=== PATIENT | female | born 1995 | race Caucasian/White ===

== ENCOUNTER 2017-12-31 11:37 | Emergency (ER) | payer BC ==
[2017-12-31] MEDS ORDERED: RINGERS SOLUTION,LACTATED 1,000 ML IV ONE (12:52)
[2017-12-31 13:18] LABS: ABSOLUTE LYMPHOCYTES (AUTO) 1.1 10^3/uL (0.5-4.7); ABSOLUTE MONOCYTES (AUTO) 0.5 10^3/uL (0.1-1.4); ABSOLUTE NEUT (AUTO) 8.2 10^3/uL (1.7-8.2); BASOPHILS % (AUTO) 0.2 % (0-2); EOSINOPHILS % (AUTO) 0.2 % (0-6); HEMATOCRIT 35.6 % (36.0-47.0); HEMOGLOBIN 12.4 g/dL (12.0-15.5); LYMPHOCYTES % (AUTO) 10.8 % (13-45); MEAN CORPUSCULAR HEMOGLOBIN 29.7 pg (27.0-33.4); MEAN CORPUSCULAR HGB CONC 34.9 g/dL (32.0-36.0); MEAN CORPUSCULAR VOLUME 85 fl (80-97); MONOCYTES % (AUTO) 5.3 % (3-13); PLATELET COUNT 198 10^3/uL (150-450); RED BLOOD COUNT 4.18 10^6/uL (3.72-5.28); RED CELL DISTRIBUTION WIDTH 12.2 % (11.5-14.0); SEGMENTED NEUTROPHILS % (AUTO) 83.5 % (42-78); TOTAL CELLS COUNTED % (AUTO) 100 %; WHITE BLOOD COUNT 9.8 10^3/uL (4.0-10.5)
[2017-12-31 13:36] LABS: APPEARANCE,URINE CLOUDY; BILIRUBIN,URINE NEGATIVE (NEGATIVE); GLUCOSE, URINE NEGATIVE (NEGATIVE); KETONES,URINE NEGATIVE (NEGATIVE); LEUKOCYTE ESTERASE,URINE NEGATIVE (NEGATIVE); NITRITE,URINE NEGATIVE (NEGATIVE); PROTEIN,URINE 100 mg/dL (NEGATIVE); URINE SPECIFIC GRAVITY 1.014; UROBILINOGEN,URINE NEGATIVE mg/dL (<2.0)
[2017-12-31 13:37] LABS: COLOR,URINE AMBER
[2017-12-31 13:38] LABS: ALANINE AMINOTRANSFERASE 18 U/L (9-52); ALBUMIN 4.1 g/dL (3.5-5.0); ALKALINE PHOSPHATASE 51 U/L (38-126); ANION GAP 11 (5-19); ASPARTATE AMINO TRANSFERASE 15 U/L (14-36); BILIRUBIN,DIRECT 0.1 mg/dL (0.0-0.4); BILIRUBIN,TOTAL 0.2 mg/dL (0.2-1.3); BLOOD UREA NITROGEN 9 mg/dL (7-20); CALCIUM 9.3 mg/dL (8.4-10.2); CARBON DIOXIDE 27 mmol/L (22-30); CHLORIDE 101 mmol/L (98-107); GLUCOSE 80 mg/dL (75-110); POTASSIUM 3.6 mmol/L (3.6-5.0); SODIUM 139.2 mmol/L (137-145); TOTAL PROTEIN 6.9 g/dL (6.3-8.2)
--- NOTE | 2017-12-31 14:15 | ER Document Report ---
ED Dizziness/Weakness - General Chief Complaint: Syncope Stated Complaint: FACIAL LACERATION Time Seen by Provider: 12/31/17 12:51 Information source: Patient Notes: Chief complaint: Laceration chin History of complain:( obtained from----patient) 22 years old female who is first trimester , did not eat anything the whole day, while dizzy and passed out and hit the table on her chin and sustained a laceration. Passing out is only for a few seconds, spontaneously came around to full consciousness. Currently has no headache no blurring of vision denies any neck pain neck stiffness. Denies any chest pain shortness of breath. Denies any abdominal pain. But felt urine being darker. Onset: As above Duration: Just prior to arrival Severity: Moderate Quality: Not applicable Context: As described above Exacerbating factor and relieving factors: None REVIEW OF SYSTEMS: CONSTITUTIONAL : Denies fever, chills, or sweats. Denies recent illness. EENT: Denies eye, ear, throat, or mouth pain or symptoms. Denies nasal or sinus congestion or discharge. Denies throat, tongue, or mouth swelling or difficulty swallowing. CARDIOVASCULAR: Denies chest pain. Denies palpitations or racing or irregular heart beat. Denies ankle edema. RESPIRATORY: Denies cough, cold, or chest congestion. Denies shortness of breath, difficulty breathing, or wheezing. GASTROINTESTINAL: Denies distention. Denies nausea, vomiting, or diarrhea. Denies blood in vomitus, stools, or per rectum. Denies black, tarry stools. Denies constipation. GENITOURINARY: Denies difficulty urinating, painful urination, burning, frequency, blood in urine, or discharge. FEMALE GENITOURINARY: Denies vaginal bleeding, heavy or abnormal periods, irregular periods. Denies vaginal discharge or odor. MUSCULOSKELETAL: Denies back or neck pain or stiffness. Denies joint pain or swelling. SKIN: Denies rash, lesions or sores. HEMATOLOGIC : Denies easy bruising or bleeding. LYMPHATIC: Denies swollen, enlarged glands. NEUROLOGICAL: Denies confusion or altered mental status. Denies passing out or loss of consciousness. Denies dizziness or lightheadedness. Denies headache. Denies weakness or paralysis or loss of use of either side. Denies problems with gait or speech. Denies sensory loss, numbness, or tingling. Denies seizures. PSYCHIATRIC: Denies anxiety or stress. Denies depression, suicidal ideation, or homicidal ideation. ALL OTHER SYSTEMS REVIEWED AND NEGATIVE. PHYSICAL EXAMINATION: GENERAL: Well-appearing, well-nourished and in no acute distress. HEAD: Atraumatic, normocephalic. EYES: Pupils equal round and reactive to light, extraocular movements intact, conjunctiva are normal. ENT: Nares patent, oropharynx clear without exudates. Moist mucous membranes. 1.5 cm linear laceration noted over the lower part of the chin NECK: Normal range of motion, supple without lymphadenopathy LUNGS: Breath sounds clear to auscultation bilaterally and equal. No wheezes rales or rhonchi. HEART: Regular rate and rhythm without murmurs ABDOMEN: Soft, nontender, nondistended abdomen. No guarding, no rebound. No masses appreciated. Examination of genitals-deferred Musculoskeletal: Normal range of motion, no pitting or edema. No cyanosis. NEUROLOGICAL: Cranial nerves grossly intact. Normal speech, normal gait. Normal sensory, motor exams PSYCH: Normal mood, normal affect. SKIN: Warm, Dry, normal turgor, no rashes or lesions noted. Dictation was performed using [employer] voice recognition software TRAVEL OUTSIDE OF THE [place] IN LAST 30 DAYS: No - HPI Notes: 1 dictated - Related Data Allergies/Adverse Reactions: No Known Allergies Allergy (Unverified 12/31/17 11:45) Past Medical History - Social History Smoking Status: Never Smoker Chew tobacco use (# tins/day): No Frequency of alcohol use: None Drug Abuse: None Lives with: Family Family History: Reviewed & Not Pertinent Patient has suicidal ideation: No Patient has homicidal ideation: No Renal/ Medical History: Denies: Hx Peritoneal Dialysis Review of Systems - Review of Systems Notes: dictated Physical Exam - Vital signs Vitals: Temp Pulse Resp BP Pulse Ox 98.0 F 73 16 127/66 H 100 12/31/17 11:54 12/31/17 11:54 12/31/17 11:54 12/31/17 11:54 12/31/17 11:54 - Notes Notes: dictated Course - Re-evaluation Re-evalutation: 12/31/17 16:10 Patient is pain-free - Vital Signs Vital signs: Temp Pulse Resp BP Pulse Ox 98.0 F 73 16 127/66 H 100 12/31/17 11:54 12/31/17 11:54 12/31/17 11:54 12/31/17 11:54 12/31/17 11:54 - Laboratory Result Diagrams: 12/31/17 13:00 12/31/17 13:00 Laboratory results interpreted by me: 12/31/17 12/31/17 12/31/17 12:53 13:00 13:00 Hct 35.6 L Seg Neutrophils % 83.5 H Lymphocytes % 10.8 L Beta HCG, Quant 15849.00 H Urine Protein 100 H Urine Blood LARGE H - Diagnostic Test Radiology reviewed: Reports reviewed - Ultrasound of the abdomen reported by radiologist as no normal kidneys did not visualize any stone Procedures - Laceration/Wound Repair Face Time completed: 13:30 Wound length (cm): 1.5 Wound's Depth, Shape: Superficial, Linear Wound Repaired With: Dermabond - Laceration was repaired with Dermabond Discharge - Discharge Clinical Impression: Intrauterine , Syncope, near Hematuria Qualifiers: Hematuria type: asymptomatic microscopic Qualified Code(s): R31.21 - Asymptomatic microscopic hematuria Laceration of chin Qualifiers: Encounter type: initial encounter Qualified Code(s): S01.81XA - Laceration without foreign body of other part of head, initial encounter Condition: Fair Disposition: HOME, SELF-CARE Instructions: Laceration Care ([facility]), Urinary Tract Infection ([facility]), Hematuria ( [facility]) Prescriptions: Nitrofurantoin Macrocrystal [Macrodantin] 100 mg PO BID #14 capsule Referrals: LOCALMD,NO [NO LOCAL MD] - Follow up as needed
--- NOTE | 2017-12-31 15:32 | RADIOLOGY REPORT (SQ) ---
EXAM DESCRIPTION: U/S RETROPERITON (RENAL/AORTA) COMPLETED DATE/TIME: 12/31/2017 3:09 pm REASON FOR STUDY: Hematuria/rule out renal stone. She is with hematuria and left flank kojo n COMPARISON: None. TECHNIQUE: Dynamic and static grayscale images acquired of the kidneys and bladder and recorded on P ACS. Additional selected color Doppler and spectral images recorded. LIMITATIONS: None. FINDINGS: RIGHT KIDNEY: Normal size. Normal echogenicity. No solid or suspicious masses. No hydronep hrosis. No calcifications. LEFT KIDNEY: Normal size. Normal echogenicity. No solid or suspicious masses. 1.7 cm cyst left lowe r pole kidney. No hydronephrosis. No calcifications. BLADDER: No masses. Right ureteral jet into the bladder was identified. OTHER FINDINGS: No other significant finding. IMPRESSION: No hydronephrosis. TECHNICAL DOCUMENTATION: JOB ID: [id number] [employer]- All Rights Reserved Reading location - IP/workstation name: [email or web address]
[2017-12-31 16:29] VITALS: BP 123/52
== END 2017-12-31 16:30 | disposition home or self-care (01) ==
LOC: ER 11:37
DX: O9A.211 Injury, poisoning and certain other consequences of external causes complicating pregnancy, first trimester (principal); S01.81XA Laceration without foreign body of other part of head, initial encounter; W22.03XA Walked into furniture, initial encounter; O26.891 Other specified pregnancy related conditions, first trimester; R55 Syncope and collapse; R31.21 Asymptomatic microscopic hematuria; Z3A.00 Weeks of gestation of pregnancy not specified
CPT/HCPCS: 99284; 96360; 36415; 84702; 85025; 80053; 81001; 76770; 12011; J7120

== ENCOUNTER 2018-08-30 10:36 | Outpatient (CLI) | payer MEDICAID ==
--- NOTE | 2018-08-30 11:36 | Non Stress Test Report ---
Non Stress Test Datetime Report Generated by CPN: 08/30/2018 11:36 DEMOGRAPHIC EGA NST: 40.1 INDICATION Indication for Study: Other Indication for Study (NST) Other: Repeat sent from office VITAL SIGNS Temperature - NST: 98.3 RESP - NST: 16 MONITORING Monitor Explained: Monitor Explained; Test Explained; Patient Verbalized Understanding Time on Monitor: 08/30/2018 10:44 Time off Monitor: 08/30/2018 11:22 NST Duration: 38 NST INTERVENTIONS NST Interventions: PO Hydration; Reposition Patient Physician Notified NST: Adrianne Patrick CNM BABY A: [id number] Movement : Present Contraction Frequency : irregular FHR Baseline : 115 Accelerations : 15X15 Decelerations : None Variability : Moderate 6-25bpm NST Review: Meets Criteria for Reactive NST NST Review and Verified By : Homero Hicks RN NST Results: Reactive NST REPORT Report Trigger: Send Report
== END 2018-08-30 11:27 | disposition home or self-care (01) ==
LOC: LC 10:36
PROVIDERS: ATTEND Obstetrics & Gynecology
DX: O36.8330 Maternal care for abnormalities of the fetal heart rate or rhythm, third trimester, not applicable or unspecified (principal); Z3A.40 40 weeks gestation of pregnancy
CPT/HCPCS: 59025

== ENCOUNTER 2018-09-04 18:29 | Inpatient (IN) | payer BC, MEDICAID ==
[2018-09-04] MEDS ORDERED: OXYTOCIN/NORMAL SALINE 20 UNIT/1,000 ML RTUINJ IV PRN (18:40)
[2018-09-04] MEDS ORDERED: DINOPROSTONE 10 MG VAGINAL INSERT.SR PV PRN (18:40)
[2018-09-04] MEDS ORDERED: RINGERS SOLUTION,LACTATED 1,000 ML IV PRN (18:40)
[2018-09-04] MEDS ORDERED: RINGERS SOLUTION,LACTATED 300 ML IV ONE (18:40)
[2018-09-04 19:10] LABS: ABSOLUTE BASOPHILS # (AUTO) 0.1 10^3/uL (0.0-0.2); ABSOLUTE EOSINOPHILS # (AUTO) 0.1 10^3/uL (0.0-0.6); ABSOLUTE LYMPHOCYTES (AUTO) 1.9 10^3/uL (0.5-4.7); ABSOLUTE MONOCYTES (AUTO) 0.8 10^3/uL (0.1-1.4); ABSOLUTE NEUT (AUTO) 9.1 10^3/uL (1.7-8.2); BASOPHILS % (AUTO) 0.5 % (0-2); EOSINOPHILS % (AUTO) 0.5 % (0-6); HEMATOCRIT 34.9 % (36.0-47.0); HEMOGLOBIN 11.8 g/dL (12.0-15.5); LYMPHOCYTES % (AUTO) 16.2 % (13-45); MEAN CORPUSCULAR HEMOGLOBIN 27.5 pg (27.0-33.4); MEAN CORPUSCULAR HGB CONC 33.7 g/dL (32.0-36.0); MEAN CORPUSCULAR VOLUME 82 fl (80-97); MONOCYTES % (AUTO) 6.3 % (3-13); PLATELET COUNT 202 10^3/uL (150-450); RED BLOOD COUNT 4.29 10^6/uL (3.72-5.28); RED CELL DISTRIBUTION WIDTH 13.1 % (11.5-14.0); SEGMENTED NEUTROPHILS % (AUTO) 76.5 % (42-78); TOTAL CELLS COUNTED % (AUTO) 100 %
[2018-09-04 19:27] LABS: APPEARANCE,URINE CLOUDY; BILIRUBIN,URINE NEGATIVE (NEGATIVE); GLUCOSE, URINE NEGATIVE (NEGATIVE); KETONES,URINE NEGATIVE (NEGATIVE); LEUKOCYTE ESTERASE,URINE MODERATE (NEGATIVE); NITRITE,URINE NEGATIVE (NEGATIVE); PROTEIN,URINE 100 mg/dL (NEGATIVE); URINE SPECIFIC GRAVITY 1.017; UROBILINOGEN,URINE NEGATIVE mg/dL (<2.0)
[2018-09-04] MEDS: RINGERS SOLUTION,LACTATED 1,000 ML IV PRN (19:33)
[2018-09-04 19:36] LABS: COLOR,URINE DARK YELLOW
[2018-09-04] MEDS ORDERED: DINOPROSTONE 10 MG VAGINAL INSERT.SR ONE (19:52)
[2018-09-04 19:59] LABS: URINE AMPHETAMINES SCREEN NEGATIVE; URINE BARBITURATES SCREEN NEGATIVE; URINE BENZODIAZEPINES SCREEN NEGATIVE; URINE COCAINE SCREEN NEGATIVE; URINE MARIJUANA (THC) SCREEN NEGATIVE; URINE METHADONE SCREEN NEGATIVE; URINE PHENCYCLIDINE SCREEN NEGATIVE
[2018-09-04] MEDS ORDERED: NALBUPHINE HCL INJ 10 MG/1 ML AMPULE ONE (22:13)
[2018-09-04] MEDS ORDERED: PROMETHAZINE HCL INJ 25 MG/1 ML VIAL ONE (22:13)
[2018-09-04] MEDS ORDERED: PROMETHAZINE HCL INJ 25 MG/1 ML VIAL IV ONE (22:30)
[2018-09-04] MEDS ORDERED: NALBUPHINE HCL INJ 10 MG/1 ML AMPULE INJ ONE (22:30)
--- NOTE | 2018-09-05 00:14 | Admission Physical ---
Datetime Report Generated by CPN: 09/05/2018 00:14 CURRENT ADMISSION Chief Complaint: Uterine Contractions; Suspected Ruptured Membranes Indication for Induction: Post Dates Admit Impression : Term, Intrauterine Admit Plan: Initiate Labor Protocol ALLERGIES Medication Allergies: No Medication Allergies: No Known Allergies (09/04/2018) Latex: Latex Allergies OBSTETRICAL HISTORY EDC: 08/29/2018 00:00 : 1 Para: 0 Term: 0 : 0 SAB: 0 IAB: 0 Ectopic: 0 Livin Cesareans: 0 VBACs: 0 Multiple Births: 0 Gestational Diabetes: No Rh Sensitization: No Incompetent Cervix: No SHEYLA: No Infertility: No ART Treatment: No Uterine Anomaly: No IUGR: No Hx Previous C/S: No Macrosomia: No Hx Loss/Stillborn: No PIH: No Hx : No Placenta Previa/Abruption: No Depression/PP Depression: No PTL/PROM: No Post Hemorrhage: No Current Procedures: Ultrasound; NST Obstetrical History Comments: G1- current denies complications SEE RECORDS Alcohol: No Marijuana : No Cocaine: No Other Illicit Drugs: No Cigarettes: Never Smoker. [id number] MEDICAL HISTORY Diabetes: No Blood Transfusion: No Pulmonary Disease (Asthma, TB): No Breast Disease: No Hypertension: No Assistant Program Director Surgery: No Heart Disease: No Hosp/Surgery: Yes Autoimmune Disorder: No Anesthetic Complications: No Kidney Disease: No Abnormal Pap Smear: Yes Neuro/Epilepsy: No Psychiatric Disorders: No Other Medical Diseases: No Hepatitis/Liver Disease: No Significant Family History: No Varicosities/Phlebitis: No Trauma/Violence : No Thyroid Dysfunction: No Medical History Comments: 05/2010- ACL Right Knee repair abnormal pap x1 repeat was wnl INFECTIOUS HISTORY Gonorrhea: No Genital Herpes: No Chlamydia: No Tuberculosis: No Syphilis: No Hepatitis: No HIV/AIDS Exposure: No Rash or Viral Illness: No HPV: Yes Infectious History Comments: h/o HPV PHYSICAL EXAM General: Normal HEENT: Normal Neurologic: Normal Thyroid: Normal Heart: Normal Lungs: Normal Breast: Deferred Back: Normal Abdomen: Normal Genitourinary Exam: Normal Extremities: Normal DTRs: Normal Pelvic Type: Adequate FETUS A EGA: 41.0 PLANS FOR LABOR AND DELIVERY Labor and Delivery: None Pain Management: Natural; Medications; Epidural Feeding Preference: Formula Benefit of Breast Feed Discussed: Yes Circumcision: Yes INFORMED CONSENT Signature: with User ID: [email or web address]
[2018-09-05] MEDS ORDERED: OXYTOCIN 10 UNIT/ML VIAL ONE (00:28)
[2018-09-05] MEDS ORDERED: EPHEDRINE SULFATE INJ 50 MG/1 ML AMPULE ONE (00:28)
[2018-09-05] MEDS ORDERED: MISOPROSTOL 0.2 MG TABLET ONE (00:28)
[2018-09-05] MEDS ORDERED: LIDOCAINE 1% INJ-PF (10 MG/ML) 30 ML SDV ONE (00:29)
[2018-09-05] MEDS ORDERED: BUPIVACAINE HCL 0.25 % INJ/PF (2.5 MG/1 ML) 30 ML VIAL ONE (00:29)
[2018-09-05] MEDS ORDERED: FENTANYL/BUPIVACAINE/NS/PF 300 MCG/150 ML RTUINJ EPI ONE (00:29)
[2018-09-05] MEDS ORDERED: OXYTOCIN/NORMAL SALINE 20 UNIT/1,000 ML RTUINJ ONE (00:29)
[2018-09-05] MEDS: RINGERS SOLUTION,LACTATED 1,000 ML IV PRN (01:32)
[2018-09-05] MEDS ORDERED: OXYTOCIN/NORMAL SALINE 20 UNIT/1,000 ML RTUINJ IV PRN ×2 (04:00→10:07)
[2018-09-05] MEDS ORDERED: PENICILLIN G-K 5 MILLION UNIT VIAL IV ONE (07:25)
[2018-09-05] MEDS ORDERED: PENICILLIN G-K 5 MILLION UNIT VIAL ONE (07:29)
[2018-09-05] MEDS ORDERED: PROMETHAZINE HCL INJ 25 MG/1 ML VIAL IV PRN (10:07)
[2018-09-05] MEDS ORDERED: ZOLPIDEM TARTRATE 5 MG TABLET PO PRN (10:07)
[2018-09-05] MEDS ORDERED: MEASLES,MUMPS&RUBELLA VACC/PF 0.5 ML VIAL SUBCUT PRN (10:07)
[2018-09-05] MEDS ORDERED: GLYCERIN/WITCH HAZEL LEAF 1 EACH MED..WIPE TP PRN (10:07)
[2018-09-05] MEDS ORDERED: MAGNESIUM HYDROXIDE SUSP 30 ML UDCUP PO PRN (10:07)
[2018-09-05] MEDS ORDERED: DIPH/PERTUSS(ACELL)/TETANUS VAC/PF 0.5 ML SYR (>=10YO) IM PRN (10:07)
[2018-09-05] MEDS ORDERED: BENZOCAINE/MENTHOL AEROSOL SPRAY 56 ML TOP PRN (10:07)
[2018-09-05] MEDS ORDERED: PROMETHAZINE HCL 25 MG SUPP.RECT PR PRN (10:07)
[2018-09-05] MEDS ORDERED: DIPHENHYDRAMINE HCL 25 MG CAPSULE PO PRN (10:07)
[2018-09-05] MEDS ORDERED: PROMETHAZINE HCL 25 MG TABLET PO PRN (10:07)
[2018-09-05] MEDS ORDERED: DIBUCAINE 1% OINTMENT 56 GM TP PRN (10:07)
[2018-09-05] MEDS ORDERED: NA PHOS,M-B/NA PHOS,DI-BA (ADULT) 133 ML ENEMA PR PRN (10:07)
[2018-09-05] MEDS ORDERED: PSEUDOEPHEDRINE HCL 30 MG TABLET PO PRN (10:07)
[2018-09-05] MEDS ORDERED: IBUPROFEN 800 MG TABLET ONE (10:51)
[2018-09-05] MEDS: IBUPROFEN 800 MG TABLET PO SCH ×3 (10:53→22:48)
[2018-09-05] MEDS: FERROUS SULFATE 325 MG TABLET PO SCH (17:39)
[2018-09-05] MEDS: DOCUSATE SODIUM 100 MG CAPSULE PO SCH (17:39)
[2018-09-05] MEDS: ACETAMINOPHEN 325 MG TABLET PO PRN (17:45)
[2018-09-05] MEDS: FAMOTIDINE 20 MG TABLET PO SCH (22:46)
[2018-09-06] MEDS: IBUPROFEN 800 MG TABLET PO SCH ×3 (05:40→21:31)
[2018-09-06 06:51] LABS: HEMATOCRIT 26.5 % (36.0-47.0); MEAN CORPUSCULAR HGB CONC 34.2 g/dL (32.0-36.0); MEAN CORPUSCULAR VOLUME 82 fl (80-97); PLATELET COUNT 159 10^3/uL (150-450); RED BLOOD COUNT 3.23 10^6/uL (3.72-5.28); RED CELL DISTRIBUTION WIDTH 13.2 % (11.5-14.0); WHITE BLOOD COUNT 14.3 10^3/uL (4.0-10.5)
--- NOTE | 2018-09-06 09:30 | PDOC PROGRESS REPORT ---
Subjective-OB Progress Note for:: 09/06/18 Subjective: Pt doing well, no concerns. She reports light bleeding, reg diet and voiding without difficulty. Physical Exam (OB) Vital Signs: Temp Pulse Resp BP Pulse Ox 98.0 F 73 16 116/70 99 09/06/18 07:59 09/06/18 07:59 09/06/18 07:59 09/06/18 07:59 09/06/18 07:59 Intake & Output 09/05/18 09/06/18 09/07/18 06:59 06:59 06:59 Intake Total 748 1000 Balance 748 1000 Weight 82.554 kg - Lochia Lochia Amount: Small 10-25 ml Lochia Color: Rubra/Red - Abdomen Description: Soft Hernia Present: No Fundal Description: Firm, Midline Fundal Height: u/u - u/2 Objective-Diagnostic Laboratory: 09/06/18 06:18 09/06/18 06:18 WBC 14.3 H RBC 3.23 L Hgb 9.0 L D Hct 26.5 L MCV 82 MCH 28.0 MCHC 34.2 RDW 13.2 Plt Count 159 Assessment and Plan(PN) - Assessment and Plan (1) Delivery normal Is this a current diagnosis for this admission?: Yes (2) Prolonged rupture of membranes, greater than 24 hours, delivered Is this a current diagnosis for this admission?: Yes - Time Spent with Patient Time with patient: Less than 15 minutes Medications reviewed and adjusted accordingly: Yes - Disposition Anticipated Discharge: Home Within: within 24 hours
[2018-09-06] MEDS: FERROUS SULFATE 325 MG TABLET PO SCH ×2 (09:46→17:35)
[2018-09-06] MEDS: DOCUSATE SODIUM 100 MG CAPSULE PO SCH ×2 (09:46→17:35)
[2018-09-06] MEDS: PRENATAL VITAMIN W DHA CAPSULE PO SCH (09:47)
[2018-09-06] MEDS: FAMOTIDINE 20 MG TABLET PO SCH ×2 (09:47→21:31)
[2018-09-06] MEDS: SENNOSIDES/DOCUSATE 8.6-50 MG 1 EACH TABLET PO SCH (09:47)
[2018-09-06] MEDS: ACETAMINOPHEN 325 MG TABLET PO PRN (17:37)
[2018-09-06] MEDS ORDERED: ACETAMINOPHEN WITH CODEINE #3 TABLET PO PRN (19:31)
[2018-09-06] MEDS: ACETAMINOPHEN WITH CODEINE #3 TABLET PO PRN (21:31)
[2018-09-07] MEDS: IBUPROFEN 800 MG TABLET PO SCH (05:28)
[2018-09-07 08:09] VITALS: BP 117/62
[2018-09-07] MEDS: PRENATAL VITAMIN W DHA CAPSULE PO SCH (09:38)
[2018-09-07] MEDS: FAMOTIDINE 20 MG TABLET PO SCH (09:38)
[2018-09-07] MEDS: SENNOSIDES/DOCUSATE 8.6-50 MG 1 EACH TABLET PO SCH (09:38)
[2018-09-07] MEDS: DOCUSATE SODIUM 100 MG CAPSULE PO SCH (09:38)
[2018-09-07] MEDS: FERROUS SULFATE 325 MG TABLET PO SCH (09:38)
[2018-09-07] MEDS: ACETAMINOPHEN WITH CODEINE #3 TABLET PO PRN (09:41)
--- NOTE | 2018-09-07 09:51 | PDOC PROGRESS REPORT ---
Subjective-OB Progress Note for:: 09/07/18 Subjective: Doing well, no c/o hsb at BS, bottle feeding, scant lochia, voiding, no pain, eating well Physical Exam (OB) Vital Signs: Temp Pulse Resp BP Pulse Ox 98.4 F 70 16 117/62 100 09/07/18 09:12 09/07/18 09:12 09/07/18 09:12 09/07/18 09:12 09/07/18 09:12 Intake & Output 09/06/18 09/07/18 09/08/18 06:59 06:59 06:59 Intake Total 1000 Balance 1000 - PIH/Pre-Eclampsia DTR's: 2 + Clonus: Negative Headache: Absent Epigastric Pain: No Visual Changes: No - Lochia Lochia Amount: Small 10-25 ml Lochia Color: Rubra/Red - Abdomen Description: Soft Hernia Present: No Fundal Description: Firm, Midline Fundal Height: u/u - u/2 Objective-Diagnostic Laboratory: 09/06/18 06:18 Assessment and Plan(PN) - Assessment and Plan (1) Anemia Qualifiers: Other causes of anemia: acute posthemorrhagic Is this a current diagnosis for this admission?: Yes (2) Normal course Is this a current diagnosis for this admission?: Yes (3) Prolonged rupture of membranes, greater than 24 hours, delivered Is this a current diagnosis for this admission?: Yes (4) , post-term Qualifiers: Post-term type: 40-42 weeks gestation Qualified Code(s): O48.0 - Post-term Is this a current diagnosis for this admission?: Yes (5) Delivery normal Is this a current diagnosis for this admission?: Yes - Time Spent with Patient Time with patient: Less than 15 minutes Medications reviewed and adjusted accordingly: Yes - Disposition Anticipated Discharge: Home Within: within 24 hours
--- NOTE | 2018-09-07 09:53 | PDOC DISCHARGE SUMMARY ---
Final Diagnosis Discharge Date: 09/07/18 - Final Diagnosis (1) Anemia Is this a current diagnosis for this admission?: Yes (2) Normal course Is this a current diagnosis for this admission?: Yes (3) Prolonged rupture of membranes, greater than 24 hours, delivered Is this a current diagnosis for this admission?: Yes (4) , post-term Is this a current diagnosis for this admission?: Yes (5) Delivery normal Is this a current diagnosis for this admission?: Yes Discharge Data - Discharge Medication Home Medications: Vit,Calc76/Iron/Folic [Pnv 29-1 Tablet] 1 tab PO DAILY 09/04/18 Gestational Age: 41 Reason(s) for Admission: Induction of Labor, PROM Procedures: NST, Ultrasound Intrapartum Procedure(s): Spontaneous Vaginal Delivery - Data Baby 1 Male Weight: 4.082 kg Home with Mother: Yes Complications: No - Diagnosis Test Laboratory: Temp Pulse Resp BP Pulse Ox 98.4 F 70 16 117/62 100 09/07/18 09:12 09/07/18 09:12 09/07/18 09:12 09/07/18 09:12 09/07/18 09:12 09/04/18 09/04/18 09/06/18 19:00 19:06 06:18 RBC 4.29 3.23 L Hgb 11.8 L 9.0 L D Hct 34.9 L 26.5 L Urine Opiates Screen NEGATIVE - Discharge information/Instructions Discharge Activity: Activity As Tolerated, No tub bath Discharge Diet: As Tolerated, Regular Disposition: HOME, SELF-CARE Follow up with: [facility] in: 4, Weeks
--- NOTE | 2018-09-13 15:12 | Delivery Summary ---
Del Sum A-C Datetime Report Generated by CPN: 09/13/2018 15:11 DELIVERY PERSONNEL DELIVERY PERSONNEL: [id number] Delivery Doctor:: Valentine Damian CNM Labor and Delivery Nurse:: Luz Morin RN Nursery Nurse:: Adelaide Pereira RN Oxygen Therapy Teacher/LASER MACHINE OPERATOR: Ritarosi Rowley, ST MATERNAL INFORMATION Delivery Anesthesia: Epidural Medications After Delivery: Pitocin Bolus-Please Comment; Pitocin Drip 20 Units/1000ml NSS Meds After Delivery Comment: pitocin 20 units in 1 L NS bolusing per order Delivery QBL: 150 Delivery QBL Comment: 150 Maternal Complications: None Provider Comments: assumed care of this patient when arrived in unit. Pt. ready to start pushing, began pushing and with much coaching went on to deliver a viable baby boy thru nuchal x1. Baby placed on maternal abdomen skin to skin- vigorous respiratory effort and cry with tactile stimulation. Cord allowed to stop pulsating and clamped x2 and cut by FOB (cord blood obtained). Placenta delivered spontaneously intact and sent to lab due to ruptured x greater than 24hrs. Vaginal and perineal inspection revealed no lacerations except for small abrasion as noted. Fundus firm at U-2, bleeding stable, mother and baby remain skin to skin and bonding at this time. Nursery in room for delivery LABOR SUMMARY EDC: 08/29/2018 00:00 No. Babies in Womb: 1 Attempted: No Labor Anesthesia: Epidural LABOR INFORMATION Reason for Induction: Post Dates; Premature Rupture of Membranes; Other Reason for Induction- Other: SROM Onset of Labor: 09/05/2018 01:00 Complete Dilatation: 09/05/2018 06:45 Cervical Ripening Agents: Cervidil Oxytocin: Induction Group B Beta Strep: negative Antibiotics # of Doses: 1 Antibiotics Time of Last Dose: 732 Name of Antibiotic Given: PCN G Steroids Given: None Reason Steroids Not Administered: Not Applicable MEMBRANES Membranes Rupture Method: Spontaneous Rupture of Membranes: 09/04/2018 04:00 Length of Rupture (hr): 29.73 Amniotic Fluid Color: Clear Amniotic Fluid Amount: Small Amniotic Fluid Odor: Normal STAGES OF LABOR Stage 1 hr: 5 Stage 1 min: 45 Stage 2 hr: 2 Stage 2 min: 59 Stage 3 hr: 0 Stage 3 min: 6 Total Time in Labor hr: 8 Total Time in Labor min: 50 VAGINAL DELIVERY Episiotomy: None Episiotomy: None Laceration #1: None Laceration #1: None Laceration Extension #1: N/A Other Laceration: vaginal abrasion-hemostatic Laceration Repair: Not Applicable Laceration Repair: Not Applicable Sponge Count Correct: N/A Sharps Count Correct: N/A CSECTION DELIVERY Primary Indication: N/A Secondary Indication: N/A CSection Incidence: N/A Labor: N/A Elective: N/A CSection Incision: N/A BABY A INFORMATION Infant Delivery Date/Time: 09/05/2018 09:44 Delivery Date/Time: 09/05/2018 09:44 Method of Delivery: Vaginal Method of Delivery: Vaginal Born in Route : No : N/A Forceps: N/A Vacuum Extraction: N/A Vacuum Extraction: N/A Shoulder Dystocia : No PRESENTATION/POSITION BABY A Presentation: Cephalic Presentation: Cephalic Presentation: Cephalic Cephalic Presentation: Vertex Vertex Position: Left Occipital Anterior Breech Presentation: N/A PLACENTA INFORMATION BABY A Placenta Delivery Time : 09/05/2018 09:50 Placenta Method of Delivery: Spontaneous Placenta Method of Delivery: Spontaneous Placenta Status: Delivered SCORES BABY A Heart Rate 1 min: >100 bpm Resp Effort 1 min: Slow, Irregular Reflex Irritability 1 min: Cough or Sneeze or Pulls Away Muscle Tone 1 min: Active Motion Color 1 min: Blue/Pale Resuscitation Effort 1 min: Tactile Stimulation SCORE 1 MIN: 7 Heart Rate 5 min: >100 bpm Resp Effort 5 min: Good Cry Reflex Irritability 5 min: Cough or Sneeze or Pulls Away Muscle Tone 5 min: Active Motion Color 5 min: Body [place], Extremities Blue Resuscitation Effort 5 min: Tactile Stimulation SCORE 5 MIN: 9 INFORMATION BABY A Gestational Age at Delivery: 41.0 Gestational Status: Late Term- 41- 41.6 Weeks Infant Outcome : Liveborn Condition : Stable Sex: Male Sex: Male Infant Sex: Male IDENTIFICATION BABY A Verification Date/Time: 09/05/2018 10:17 ID Band Number: [id number] Mother's Name Verified: Yes RN Verifying Infant: Judith Donis RN, CST WEIGHT/LENGTH BABY A Infant Birthweight (gm): 4074 Infant Weight (lb): 9 Weight (oz): 0 Infant Length (in): 22.40 Length (cm): 56.90 CORD INFORMATION BABY A No. Cord Vessels: 3 Nuchal Cord : Around Neck x1, Loose Cord Blood Taken: Yes-For Storage (Mom's Blood type +) Suction: Mouth ASSESSMENT BABY A Complications: Multiple Variable Decels Physical Findings at Delivery: Caput Succedaneum Skin to Skin: Yes Care By: Jacklyn Pereira RN Transferred To: Remains with Mother BABY B INFORMATION : N/A SIGNATURES Assignment: Marlys Villalpando MD Signature: with User ID: [email or web address] : with User ID: [email or web address]
== END 2018-09-07 12:28 | disposition home or self-care (01) | DRG 806 ==
LOC: LR 18:29 → 2S 09-05 16:10
PROVIDERS: ADMIT Obstetrics & Gynecology Gynecology; ATTEND Obstetrics & Gynecology Gynecology
PROC: 4A1HXCZ Monitoring of Products of Conception, Cardiac Rate, External Approach (ICD-10-PCS; 2018-09-04)
PROC: 10E0XZZ Delivery of Products of Conception, External Approach (ICD-10-PCS; principal; 2018-09-05)
PROC: 3E033VJ Introduction of Other Hormone into Peripheral Vein, Percutaneous Approach (ICD-10-PCS; 2018-09-05)
DX: O48.0 Post-term pregnancy (principal); D62 Acute posthemorrhagic anemia; Z37.0 Single live birth; O42.12 Full-term premature rupture of membranes, onset of labor more than 24 hours following rupture; O90.81 Anemia of the puerperium; O69.81X0 Labor and delivery complicated by cord around neck, without compression, not applicable or unspecified; Z3A.41 41 weeks gestation of pregnancy
CPT/HCPCS: 36415; 80307; 81005; 84112; 85025; 85027; 86592; 86850; 86900; 86901; 88307; 94760; J2300; J2540; J2550; J2590; J3010; J3490